=== PATIENT | female | born 1975 | race Caucasian/White ===

== ENCOUNTER 2016-09-18 10:48 | Day surgery (SDC) | payer BC ==
[2016-09-10 14:21] VITALS: BMI 24.0
--- NOTE | 2016-09-10 14:44 | PAT Medication Instructions ---
Service Date September 10, 2016. Current Home Medication List Acetaminophen (Tylenol), 1,000 MG PO PRN Fexofenadine-Pseudoephedrine (Aurea-D 24 Hour Allergy), 1 TAB PO QAM Fluticasone Prop/Salmeterol (Advair Diskus 100/50 60 Dose), 1 PUFF INH BID Fluticasone Propionate (Nasal) (Flonase Allergy Relief), 2 SPRAYS GLENN QAM Ibuprofen (Advil), 400 MG PO PRN Multivitamin (Multivitamin), 2 TABS PO QAM [Progest Cream], 1 APPLN PV UD Medication Instructions For Your Scheduled Surgery - Hold the following medications 24 hours prior to surgery: [Progest Cream], 1 APPLN PV UD - Hold the following medications the morning of surgery: Multivitamin (Multivitamin), 2 TABS PO QAM Ibuprofen (Advil), 400 MG PO PRN (otherwise okay to continue per surgeon) Fexofenadine-Pseudoephedrine (Aurea-D 24 Hour Allergy), 1 TAB PO QAM - Take the following medications the morning of surgery with a sip of water OTHERWISE NOTHING TO EAT OR DRINK AFTER MIDNIGHT: Fluticasone Propionate (Nasal) (Flonase Allergy Relief), 2 SPRAYS GLENN QAM Fluticasone Prop/Salmeterol (Advair Diskus 100/50 60 Dose), 1 PUFF INH BID Albuterol Rescue Inhaler (use if needed; BRING TO HOSPITAL) Acetaminophen (Tylenol), 1,000 MG PO PRN (may use if needed up to 4 hours prior to surgery) - Take the following medications as scheduled the night before surgery: Fluticasone Prop/Salmeterol (Advair Diskus 100/50 60 Dose), 1 PUFF INH BID Acetaminophen (Tylenol), 1,000 MG PO PRN If you have any questions please call us at [phone] or [phone] or [phone]
[2016-09-10 15:01] LABS: BASO % 0.3 %; BASO ABS # 0.02 K/uL (0-0.2); COMPLETE YES; EOS % 0.9 %; HEMATOCRIT 38.6 % (37-47); IG% 0.2 %; LYMPH % 29.9 %; LYMPH ABS # 1.93 K/uL (1.2-3.4); MEAN CELL VOLUME 90.4 fL (80-100); MEAN CORPUSCULAR HEMOGLOBIN 30.9 pg (25-34); MEAN CORPUSCULAR HGB CONC 34.2 g/dl (32-36); MEAN PLATELET VOLUME 9.8 fL (7.4-10.4); MONO % 5.9 %; NEUT % 62.8 %; PLATELET COUNT 201 K/uL (130-400); RED BLOOD COUNT 4.27 M/uL (4.2-5.4); WHITE BLOOD COUNT 6.46 K/uL (4.8-10.8)
[~2016-09-18] VITALS: Ht 160 cm; Wt 63.7 kg
[~2016-09-18 10:48] MED LIST: ACET-1256 PO; ADVIN10/60 INH; ATROPINE SULFATE 0.1 MG/ML 5ML SYR IV PRN; DEXAMETHASONE SOD INJ 4 MG/ML VIAL ONE; EpHEDrine SULFATE INJ 50 MG/ML AMP IV PRN; FENTANYL CITRATE INJ 50 MCG/1 ML 2 ML VIAL ONE; FEXO1TAB58 PO; FLUT0.15 NAE; GLYCOPYRROLATE INJ 0.2 MG/ML VIAL ONE; HYDROmorphone INJ 1 MG/ML SYR IV PRN; IBUP-1050 PO; LABETALOL HCL IV 5 MG/ML 20ML IV PRN; LACTATED RINGER'S 1000ML 1,000 ML IV SCH; LIDOCAINE HCL 2% 2 ML VIAL (20MG/ML) ONE; MEPERIDINE HCL 25 MG/ML CARP IV PRN; MIDAZOLAM HCL 1 MG/ML 2ML VIAL ONE; MULT-506 PO; NEOSTIGMINE METHYLSULFATE 5 MG/5 ML SYR ONE; ONDANSETRON INJ 2 MG/ML 2 ML VIAL IV PRN; ONDANSETRON INJ 2 MG/ML 2 ML VIAL ONE; PROGEST PV; PROPOFOL IV EMULSION 10 MG/ML 20 ML VIAL IV ONE; ROCURONIUM BROMIDE 10 MG/ML 5 ML VIAL ONE
[2016-09-18 11:19] VITALS: BP 111/63; PULSE 60; TEMP 37.2; O2SAT 100; Ht 160 cm; Wt 63.7 kg
--- NOTE | 2016-09-18 11:58 | History & Physical Bridge Note ---
H&P Re-Evaluation Bridge Note: I have examined the patient, reviewed the History & Physical and in the interval since the performance of the History & Physical I have noted the following changes of clinical significance: No changes noted
[2016-09-18] MEDS: CEFAZOLIN 2000 MG/60 ML D5W 50 ML IV SCH ×2 (12:17→12:20)
[2016-09-18] MEDS ORDERED: BUPIVACAINE 0.5 % 5 MG/1 ML MPF 30ML VIAL ONE (12:27)
[2016-09-18] MEDS ORDERED: GLYCOPYRROLATE INJ 0.2 MG/ML VIAL ONE (13:12)
[2016-09-18] MEDS ORDERED: SODIUM CHLORIDE 0.9% 1000ML 1,000 ML IV SCH (13:33)
--- NOTE | 2016-09-18 13:39 | [facility] Post Operative Brief Note ---
Immediate Operative Summary Operative Date September 18, 2016. Pre-Operative Diagnosis Complex left ovarian cyst, history of endometriosis, chronic pelvic pain Post-Operative Diagnosis same Procedure(s) Performed Laparoscopy, Left Salpingo-oophorectomy Surgeon Dr. Espana Nutter Up Surgeon(s) Dr. Rome Estimated Blood Loss 5ml Findings Upon laparoscopic exam. Uterus was at midline, freely mobile with normal contour. There was a thin film over the serosa of the uterus indicating endometriosis. The left fallopian tube and ovary were adhered to each other. There was a complex cystic structure noted on the left ovary. The entire left adnexa was successfully removed with the LigaSure, placed within an EndoCatch bag and removed from the abdomen. Hemostasis noted. There was scar tissue and deep endometrial implants along the left uterosacral ligament and posterior cul- de-sac. The right ovary and tube were grossly normal. No other intraabdominal or pelvic pathology noted. Patient tolerated the procedure well and was sent to recovery with stable vital signs. Fluids (cc crystalloids) 1000 Specimens A. left tube and ovary (permanent) Drains none Anesthesia General Complication(s) None Disposition Recovery Room / PACU
[2016-09-18] MEDS ORDERED: MTR600X PO (13:40)
[2016-09-18] MEDS ORDERED: OXYC-57 PO (13:40)
--- NOTE | 2016-09-18 13:42 | Discharge Instructions ---
Discharge Instructions Date of Service September 18, 2016. Visit Reason for Visit: Pelvic Pain, Left Complex Ovarian Cyst, Hx Endomet Discharge Discharge Diagnosis / Problem: Laparoscopic removal of left tube and ovary, Endometriosis Discharge Goals Goal(s): Decrease discomfort Activity Recommendations Activity Limitations: per Instructions/Follow-up section Anesthesia . Post Anesthesia Instructions: If you have had General Anesthesia or IV Sedation: * Do not drive today. * Resume driving when surgeon permits. * Do not make important decisions or sign legal documents today. * Call surgeon for: 1. Temperature elevations greater than 101 degrees F. 2. Uncontrollable pain. 3. Excessive bleeding. 4. Persistent nausea and vomiting. 5. Medication intolerance (nausea, vomiting or rash). * For nausea and vomiting use only clear liquids such as: tea, soda, bouillon until nausea subsides, then gradually increase diet as tolerated. * If you have any concerns or questions, call your surgeon's office. If physician is unavailable and it is an emergency, call 911 or go to the nearest emergency room. . Instructions / Follow-Up Instructions / Follow-Up SPECIAL CARE INSTRUCTIONS: * Check temperature twice daily for one week. Report any elevation over 100.4 degrees Fahrenheit (38.0 degrees Celsius). * Call office in the next few days for return appointment. * You may experience some vaginal spotting and/or bleeding, this is normal for one or two weeks and should not alarm you. * Post-operative discomfort may consist of a sore throat, a "bloated" feeling and pain in the shoulders. These are normal symptoms which usually only last for two or three days. FOLLOW UP VISIT: Keep any scheduled doctor appointments. Diet Recommendations Recommended Home Diet: no limitations, resume previous diet Procedures Procedures Performed: Laparoscopy, Left Salpingo-oophorectomy Pending Studies Studies pending at discharge: no Medical Emergencies . Who to Call and When: Medical Emergencies: If at any time you feel your situation is an emergency, please call 911 immediately. . Non-Emergent Contact Non-Emergency issues call your: Primary Care Provider, Transfer Station Attendant . . "Provider Documentation" section prepared by Osvaldo Espana. . [place] Drug Monitoring Program Search Results: patient reviewed within database, no issues identified
[2016-09-18] MEDS ORDERED: IBUPROFEN 600 MG TAB PO PRN (13:45)
[2016-09-18] MEDS ORDERED: KETOROLAC TROMETHAMINE 30 MG/ML VIAL IV. PRN (13:45)
[2016-09-18] MEDS ORDERED: OXYCODONE/ACETAMINOPHEN 5-325 TAB PO PRN ×2 (13:45)
[2016-09-18] MEDS ORDERED: ONDANSETRON INJ 2 MG/ML 2 ML VIAL IV PRN (13:45)
[2016-09-18] MEDS: FENTANYL CITRATE INJ 50 MCG/1 ML 2 ML VIAL IV PRN ×2 (13:51→13:56)
--- NOTE | 2016-09-18 14:16 | Anesthesiology Progress Note ---
Anesthesia Post Op Note Date & Time September 18, 2016 at 14:16 Vital Signs Pain Intensity: 3 Vital Signs Past 12 Hours Date Time Temp Pulse Resp B/P Pulse Ox O2 Delivery O2 Flow Rate FiO2 09/18/16 14:05 72 19 103/55 100 Mask 10 09/18/16 13:55 68 16 103/61 100 Mask 10 09/18/16 13:45 36.4 95 16 110/61 100 Mask 10 09/18/16 11:19 37.2 60 18 111/63 100 Room Air Notes Mental Status: alert / awake / arousable, participated in evaluation Pt Amnestic to Procedure: Yes Nausea / Vomiting: adequately controlled Pain: adequately controlled Airway Patency, RR, SpO2: stable & adequate BP & HR: stable & adequate Hydration State: stable & adequate Anesthetic Complications: no major complications apparent
[2016-09-18 14:30] VITALS: BP 101/62; PULSE 76; TEMP 36.7; O2SAT 100
[2016-09-18 15:00] VITALS: BP 107/65; PULSE 64; TEMP 36.7; O2SAT 100
[2016-09-18] MEDS ORDERED: OXYCODONE/ACETAMINOPHEN 5-325 TAB ONE (15:02)
[2016-09-18 15:25] VITALS: BP 123/69; PULSE 67; TEMP 36.5; O2SAT 100
--- NOTE | 2016-09-18 16:12 | OPERATIVE REPORT ---
DATE OF OPERATION: 09/18/2016 PREOPERATIVE DIAGNOSES: 1. Complex left ovarian cyst. 2. Chronic pelvic pain. 3. History of endometriosis. POSTOPERATIVE DIAGNOSES: Same. OPERATIVE PROCEDURE: Laparoscopy with left salpingo-oophorectomy. SURGEON: Dr. Osvaldo Espana. LINOLEUM INSTALLER: Dr. Camacho. ANESTHESIA: General. ESTIMATED BLOOD LOSS: 5 mL. IV FLUIDS: 1000 mL crystalloids. URINE OUTPUT: 100 mL clear yellow urine. SPECIMENS: Left ovary and tube to pathology. DRAINS: None. COMPLICATIONS: None. DISPOSITION: Recovery room. OPERATIVE FINDINGS: Upon laparoscopic exam, uterus was at midline and freely mobile with normal contour. No subserosal fibroids noted. There was a thin film over the serosa of the uterus indicating endometriosis. The left fallopian tube and ovary were tightly adhered to each other. There was a complex cystic structure noted on the left ovary and tube. The entire left adnexa was successfully removed with the LigaSure, placed within an EndoCatch bag and removed from the abdomen. Excellent hemostasis was noted at the removal site. There was also scar tissue and deep endometrial implants along the left uterosacral ligament and posterior cul-de-sac. The right ovary and fallopian tube were grossly normal. No other intra-abdominal or pelvic pathology noted. The patient tolerated the procedure well and was sent to recovery with stable vital signs. OPERATIVE PROCEDURE IN DETAIL: The patient was taken to the operating room, where general anesthesia was administered. Once anesthesia was found to be adequate, the patient was placed in dorsal lithotomy position and was prepped and draped in a manner appropriate for the procedure. The bladder was drained of clear yellow urine. A weighted speculum was then placed into the vagina and the anterior lip of the cervix was grasped with a single tooth tenaculum. A Everypoint uterine manipulator was then placed within the uterus in an anteverted fashion. The patient was then ready for the laparoscopic portion of the procedure. Attention was directed towards the abdomen. 0.5% Marcaine was injected below the umbilicus and an 11-mm skin incision was made below the umbilicus in a vertical fashion. A Veress needle was then placed within the abdomen and normal saline was injected with no fecal content aspirated. Pneumoperitoneum was then created. The Veress needle was then removed and an 11-mm trocar was then placed within the abdomen under direct laparoscopic visualization. The patient was then placed in steep Trendelenburg position. The bowel was displaced superiorly away from the pelvis. A second 11-mm skin incision was made 2 fingerbreadths above the pubic symphysis in a horizontal fashion and 11-mm trocar was then placed within the abdomen under direct laparoscopic visualization. A thorough examination of the abdomen and pelvis was then performed. Attention was directed towards the left adnexa, where there was a complex cystic structure along the left ovary and tube. The left ovary was tightly adhered to the left fallopian tube. The entire complex was removed with the LigaSure. The left infundibulopelvic ligament was cauterized and transected and continued inferiorly through the rest of the left ovary and tube, removing the left ovary and tube successfully. Excellent hemostasis was noted. The specimens were then placed within an EndoCatch bag and removed from the suprapubic trocar. Once the specimen was removed, the entire abdomen and pelvis were then irrigated with warm saline solution. Any residual bleeding was cauterized with the LigaSure. Again, excellent hemostasis was noted at the removal site of the left ovary and tube. At this point, the procedure was found to be complete and as much CO2 gas was allowed to percolate through the open cannulas. The cannulas were then removed. The fascia of both skin incisions were closed with 0 Vicryl suture in a [id number] interrupted fashion. Both skin incisions were closed with 4-0 Monocryl in a subcuticular fashion. Excellent hemostasis was noted. The Hulka uterine manipulator was then removed from the vagina. Again, hemostasis was noted. All sponge and instrument counts were found to be correct x2. The patient tolerated the surgery well and was sent to recovery with stable vital signs. I attest to the content of the Intraoperative Record and any orders documented therein. Any exceptio ns are noted below.
== END 2016-09-18 15:35 | disposition home or self-care (01) ==
LOC: C.ACU 10:48
PROVIDERS: ATTEND Obstetrics & Gynecology
DX: N83.202 Unspecified ovarian cyst, left side (principal); N80.2 Endometriosis of fallopian tube; N80.1 Endometriosis of ovary; N83.8 Other noninflammatory disorders of ovary, fallopian tube and broad ligament; G89.29 Other chronic pain; Z87.42 Personal history of other diseases of the female genital tract; Z90.89 Acquired absence of other organs; J45.909 Unspecified asthma, uncomplicated; Z98.890 Other specified postprocedural states; Z87.891 Personal history of nicotine dependence; Z98.51 Tubal ligation status; Z68.24 Body mass index [BMI] 24.0-24.9, adult; Z90.49 Acquired absence of other specified parts of digestive tract; Z80.1 Family history of malignant neoplasm of trachea, bronchus and lung; Z80.52 Family history of malignant neoplasm of bladder; Z83.3 Family history of diabetes mellitus; Z82.49 Family history of ischemic heart disease and other diseases of the circulatory system; Z82.3 Family history of stroke; Z82.5 Family history of asthma and other chronic lower respiratory diseases

== ENCOUNTER 2017-05-15 17:34 | Emergency (ER) | payer BC ==
[~2017-05-15] VITALS: Ht 160 cm; Wt 63.7 kg
[~2017-05-15 17:34] MED LIST changes: -ATROPINE SULFATE 0.1 MG/ML 5ML SYR IV PRN; -DEXAMETHASONE SOD INJ 4 MG/ML VIAL ONE; -EpHEDrine SULFATE INJ 50 MG/ML AMP IV PRN; -FENTANYL CITRATE INJ 50 MCG/1 ML 2 ML VIAL ONE; -GLYCOPYRROLATE INJ 0.2 MG/ML VIAL ONE; -HYDROmorphone INJ 1 MG/ML SYR IV PRN; -IBUP-1050 PO; -LABETALOL HCL IV 5 MG/ML 20ML IV PRN; -LACTATED RINGER'S 1000ML 1,000 ML IV SCH; -LIDOCAINE HCL 2% 2 ML VIAL (20MG/ML) ONE; -MEPERIDINE HCL 25 MG/ML CARP IV PRN; -MIDAZOLAM HCL 1 MG/ML 2ML VIAL ONE; +MTR600X PO; -NEOSTIGMINE METHYLSULFATE 5 MG/5 ML SYR ONE; -ONDANSETRON INJ 2 MG/ML 2 ML VIAL IV PRN; -ONDANSETRON INJ 2 MG/ML 2 ML VIAL ONE; +OXYC-57 PO; -PROPOFOL IV EMULSION 10 MG/ML 20 ML VIAL IV ONE; -ROCURONIUM BROMIDE 10 MG/ML 5 ML VIAL ONE
[2017-05-15 17:37] VITALS: TEMP 36.5; Ht 160 cm; Wt 63.7 kg
[2017-05-15] MEDS ORDERED: ACETAMINOPHEN 500 MG TAB PO STA (18:00)
[2017-05-15] MEDS ORDERED: MoRPHine SULFATE 4 MG/ML 1 ML CARP\\VIAL IV STA (18:00)
[2017-05-15] MEDS ORDERED: KETOROLAC TROMETHAMINE 30 MG/ML VIAL IV STA (18:00)
--- NOTE | 2017-05-15 18:17 | DIAGNOSTIC IMAGING REPORT ---
CHEST ONE VIEW PORTABLE CLINICAL HISTORY: Atypical chest pain COMPARISON STUDY: No previous studies for comparison. FINDINGS: The cardiac and mediastinal contours are normal. There is no evidence of focal pulmonary consolidation. There is no evidence of failure. No pleural effusions are visualized.[ No pneumothorax is visualized. An electronic device projects over the left chest, possibly representing an event recorder. IMPRESSION: No active disease in the chest. Electronically signed by: José Antonio Martines M.D. 05/15/2017 6:15 PM Dictated Date/Time: 05/15/2017 6:15 PM
[2017-05-15 18:21] VITALS: O2SAT 100
[2017-05-15 18:23] LABS: BASO % 0.4 %; BASO ABS # 0.03 K/uL (0-0.2); EOS % 0.7 %; EOS ABS # 0.05 K/uL (0-0.5); HEMOGLOBIN 13.6 g/dL (12.0-16.0); IG# 0.01 K/uL (0.00-0.02); LYMPH % 31.5 %; LYMPH ABS # 2.29 K/uL (1.2-3.4); MEAN CELL VOLUME 89.8 fL (80-100); MEAN CORPUSCULAR HEMOGLOBIN 32.2 pg (25-34); MEAN CORPUSCULAR HGB CONC 35.8 g/dl (32-36); MEAN PLATELET VOLUME 9.8 fL (7.4-10.4); MONO % 4.7 %; MONO ABS # 0.34 K/uL (0.11-0.59); NEUT % 62.6 %; NEUT ABS # 4.54 K/uL (1.4-6.5); PLATELET COUNT 231 K/uL (130-400); RED CELL DISTRIBUTION WIDTH CV 12.3 % (11.5-14.5); WHITE BLOOD COUNT 7.26 K/uL (4.8-10.8)
--- NOTE | 2017-05-15 18:24 | EMERGENCY ROOM VISIT NOTE ---
History Report prepared by Dudley: Yoon Fatima Under the Supervision of: Dr. Anam Daugherty M.D. 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 Positive cough, nausea, diaphoresis, lightheadedness, back pain, and shortness of breath. Negative vomiting, abdominal pain or recent travels. She notes the chest pain began when she was leaning into a laundry basket. She notes the chest pain is radiating to her back. She currently rates her pain a 7/10 in severity. Per , the patient appeared pale and her pupils were dilated at dinner time today. She notes that she was having palpitations in late March and had a UTI at that time. She was seen by her vp software who placed a compress machine operator on her. Her vp software advised her to come to the ED if her symptoms persisted. She notes that she has been having chest pains intermittently, though she had not had them for two weeks until today. She notes that she is very active. She notes her LNMP was last week. She denies any history of tobacco use. She denies any flu-like symptoms. She denies any history of DVT, PE , [place]. She denies any family history of [place]. 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 She denies any recent travels. Review of Systems See HPI for pertinent positives and negatives. A total of ten systems were reviewed and were otherwise negative. Past Medical & Surgical Medical Problems: (1) Cervical rib resection (2015) (2) Umbilical hernia Surgical Problems: (1) H/O section (2) S/P cholecystectomy Family History Cancer Diabetes mellitus FHx: gallbladder disease Heart disease Hypertension Lung disease Social History Smoking Status: Former Smoker Smokeless Tobacco Use: No Alcohol Use: occasionally Drug Use: none Marital Status: Housing Status: lives with family Occupation Status: employed Current/Historical Medications Scheduled Cyanocobalamin (Vitamin B-12), 500 MCG PO DAILY Fexofenadine-Pseudoephedrine (Aurea-D 24 Hour Allergy), 1 TAB PO QAM Fluticasone Prop/Salmeterol (Advair Diskus 100/50 60 Dose), 1 PUFF INH BID Fluticasone Propionate (Nasal) (Flonase Allergy Relief), 2 SPRAYS GLENN QAM Multivitamin (Multivitamin), 2 TABS PO QAM [Progest Cream], 1 APPLN PV UD Allergies Coded Allergies: POLLEN (Verified Allergy, Unknown, POLLEN, GRASS, TREES-AGGRAVATES ASTHMA- STUFFY NOSE,, 05/15/17) Metoclopramide (Verified Adverse Reaction, Unknown, ANXIETY, 05/15/17) Physical Exam Vital Signs Date Time Temp Pulse Resp B/P (MAP) Pulse Ox O2 Delivery O2 Flow Rate FiO2 05/15/17 19:52 59 18 102/68 100 05/15/17 19:51 59 18 102/68 100 Room Air 05/15/17 18:50 58 20 102/68 99 Room Air 05/15/17 18:21 65 18 111/66 100 Room Air 05/15/17 18:21 100 Room Air 05/15/17 18:19 100 Room Air 05/15/17 18:11 71 05/15/17 17:37 36.5 73 20 132/79 100 Room Air Physical Exam GENERAL: Awake, alert, well-appearing, NAD HENT: Normocephalic, atraumatic. EYES: Normal conjunctiva. Sclera non-icteric. NECK: Supple. No nuchal rigidity. FROM. Scarring of the right inferior lateral aspect of the neck. RESPIRATORY: CTAB, no rhonchi, wheezing, crackles CARDIAC: RRR, no MRG ABDOMEN: Soft, NTND, BS+ MSK: No chest wall TTP, no LE edema. device on left chest. No calf pain. No leg swelling. NEURO: GCS 15, CN 2-12 intact, moves all 4s on command SKIN: No rash or jaundice noted. Medical Decision & Procedures ER Provider Diagnostic Interpretation: Radiology results as stated below per my review and radiologist interpretation: CHEST ONE VIEW PORTABLE CLINICAL HISTORY: Atypical chest pain COMPARISON STUDY: No previous studies for comparison. FINDINGS: The cardiac and mediastinal contours are normal. There is no evidence of focal pulmonary consolidation. There is no evidence of failure. No pleural effusions are visualized.[ No pneumothorax is visualized. An electronic device projects over the left chest, possibly representing an event recorder. IMPRESSION: No active disease in the chest. Electronically signed by: José Antonio Martines M.D. 05/15/2017 6:15 PM Dictated Date/Time: 05/15/2017 6:15 PM Laboratory Results 05/15/17 18:02 Red Blood Count 4.23, Mean Corpuscular Volume 89.8, Mean Corpuscular Hemoglobin 32.2, Mean Corpuscular Hemoglobin Concent 35.8, Mean Platelet Volume 9.8, Neutrophils (%) (Auto) 62.6, Lymphocytes (%) (Auto) 31.5, Monocytes (%) (Auto) 4.7, Eosinophils (%) (Auto) 0.7, Basophils (%) (Auto) 0.4, Neutrophils # (Auto) 4.54, Lymphocytes # (Auto) 2.29, Monocytes # (Auto) 0.34, Eosinophils # (Auto) 0.05, Basophils # (Auto) 0.03 05/15/17 18:02 Test 05/15/17 18:02 White Blood Count 7.26 K/uL (4.8-10.8) Red Blood Count 4.23 M/uL (4.2-5.4) Hemoglobin 13.6 g/dL (12.0-16.0) Hematocrit 38.0 % (37-47) Mean Corpuscular Volume 89.8 fL (80-100) Mean Corpuscular Hemoglobin 32.2 pg (25-34) Mean Corpuscular Hemoglobin Concent 35.8 g/dl (32-36) Platelet Count 231 K/uL (130-400) Mean Platelet Volume 9.8 fL (7.4-10.4) Neutrophils (%) (Auto) 62.6 % Lymphocytes (%) (Auto) 31.5 % Monocytes (%) (Auto) 4.7 % Eosinophils (%) (Auto) 0.7 % Basophils (%) (Auto) 0.4 % Neutrophils # (Auto) 4.54 K/uL (1.4-6.5) Lymphocytes # (Auto) 2.29 K/uL (1.2-3.4) Monocytes # (Auto) 0.34 K/uL (0.11-0.59) Eosinophils # (Auto) 0.05 K/uL (0-0.5) Basophils # (Auto) 0.03 K/uL (0-0.2) RDW Standard Deviation 40.0 fL (36.4-46.3) RDW Coefficient of Variation 12.3 % (11.5-14.5) Immature Granulocyte % (Auto) 0.1 % Immature Granulocyte # (Auto) 0.01 K/uL (0.00-0.02) Prothrombin Time 10.7 SECONDS (9.0-12.0) Prothromb Time International Ratio 1.0 (0.9-1.1) Activated Partial Thromboplast Time 26.6 SECONDS (21.0-31.0) Partial Thromboplastin Ratio 1.0 D-Dimer < 190 ug/L FEU (0-500) Anion Gap 9.0 mmol/L (3-11) Est Creatinine Clear Calc Drug Dose 73.8 ml/min Estimated GFR () 91.5 Estimated GFR (Non- 78.9 BUN/Creatinine Ratio 16.5 (10-20) Calcium Level 9.3 mg/dl (8.5-10.1) Total Bilirubin 0.8 mg/dl (0.2-1) Direct Bilirubin 0.1 mg/dl (0-0.2) Aspartate Amino Transf (AST/SGOT) 15 U/L (15-37) Alanine Aminotransferase (ALT/SGPT) 19 U/L (12-78) Alkaline Phosphatase 56 U/L (45-117) Troponin I < 0.015 ng/ml (0-0.045) Pro-B-Type Natriuretic Peptide 29 pg/ml (0-450) Total Protein 7.4 gm/dl (6.4-8.2) Albumin 4.2 gm/dl (3.4-5.0) Lipase 186 U/L (73-393) Laboratory results reviewed by me Medications Administered Medications (Trade) Dose Ordered Sig/Wu Route Start Time Stop Time Status Last Admin Dose Admin Acetaminophen (Tylenol Tab) 1,000 mg NOW STAT PO 05/15/17 18:00 05/15/17 18:02 DC 05/15/17 18:25 1,000 MG Ketorolac Tromethamine (Toradol Inj) 30 mg NOW STAT IV 05/15/17 18:00 05/15/17 18:02 DC 05/15/17 18:25 30 MG Morphine Sulfate (MoRPHine SULFATE INJ) 4 mg NOW STAT IV 05/15/17 18:00 05/15/17 18:02 DC 05/15/17 18:26 4 MG ECG Indication: chest pain Rate (beats per minute): 73 Rhythm: normal sinus Findings: nonspecific-ST abn, other (Normal axis. Normal intervals. ) ED Course 1756: The patient was evaluated in room C8. A complete history and physical exam was performed. 1924: I reassessed the patient at this time. She is feeling better and resting comfortably. I discussed the results and treatment plan with the patient. I answered all pertaining questions that she had. She expressed understanding and verbalized agreement. The patient will be discharged home. 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 Prior records/ancillary studies reviewed. The patient's history was concerning for chest pain. Differential diagnosis: Etiologies such as cardiac ischemia, aortic dissection, pulmonary embolism, pneumonia, pneumothorax, musculoskeletal, infections, pericarditis, myocarditis , esophageal rupture, gastrointestinal, as well as others were entertained. Patient was seen and evaluated the bedside. Patient did have a history of chronic chest pains and has been seen as an outpatient. Patient currently does have a recording device on the anterior chest. Patient does have follow-up with cardiology and is scheduled for an outpatient echocardiogram. Patient does not sound like typical ACS with an EKG and troponin were obtained. Patient did have additional blood work as well as chest x-ray. Given patient's persistent chest pain and d-dimer was also obtained given that I find she is likely low risk. Patient's d-dimer was normal. Patient troponin negative. Patient's EKG did not show any ischemic changes. Patient's white blood cell count was normal limits. Patient's H&H is normal. Patient's chest x-ray is clear. No evidence of consolidation, pneumothorax, pleural effusion, or interstitial edema. I did discuss the findings with the patient stated this is less likely to be ACS or PE. Patient was given return precautions as well as warning signs for which to return. Patient was told to keep her follow-up appointments. Patient did state that her chest pain had improved after being given medications. Patient was told it would not be unreasonable to try things like Motrin or ibuprofen and Tylenol. Patient was agreeable with plan of care. Patient did have a heart score less than 4 less likely ACS and may follow up as an outpatient. Given the patient's normal d-dimer unlikely to be PE. May be somewhat muscular skeletal of the patient's pain did improve with pain control. Patient was given strict follow-up, discharge, and return precautions. All questions were answered. Patient was deemed suitable for outpatient follow-up at this time. Patient agreed with the plan of care and was safely discharged home. Medication Reconcilliation Current Medication List: was personally reviewed by me Blood Pressure Screening Patient's blood pressure: Normal blood pressure Impression Primary Impression: Chest pain Scribe Attestation The scribe's documentation has been prepared under my direction and personally reviewed by me in its entirety. I confirm that the note above accurately reflects all work, treatment, procedures, and medical decision making performed by me. Departure Information Dispostion Home / Self-Care Referrals No Doctor, Assigned (PCP) Forms Call Back Authorization, HOME CARE DOCUMENTATION FORM, IMPORTANT VISIT INFORMATION Patient Instructions Chest Pain - [facility], [facility] Additional Instructions Please return to the emergency department if you have worsening or recurrent symptoms not amenable to at-home treatment. Please call for a follow-up appointment with her primary care physician. Please take your medications as prescribed. If you have other concerns and/or complaints please feel free to also call your primary care physician's office or return the ED for further evaluation, management, and treatment. You received narcotic or benzodiazepene medication while in the emergency room today. This is an addictive medication that may cause drowziness as well as constipation. Do not drive, operate heavy machinery, or drink alcohol under the influence of this medication. You may take 600 mg Ibuprofen every 6 hours as needed for pain with food for no more than 2 consecutive days. You may take tylenol 1000 mg every 6 hours as needed for pain. You may take motrin and tylenol separately or at the same time. Take your medications as prescribed. You have been examined and treated today on an emergency basis only. This is not a substitute for, or an effort to provide, complete comprehensive medical care. It is impossible to recognize and treat all injuries or illnesses in a single emergency department visit. It is therefore important that you follow up closely with [facility], your PCP, and/or your specialist(s). Call as soon as possible for an appointment. Thank you for your time and consideration. I look forward to speaking with you again soon. Please don't hesitate to call us if you have any questions. Problem Qualifiers Primary Impression: Chest pain Chest pain type: unspecified Qualified Codes: R07.9 - Chest pain, unspecified
[2017-05-15] MEDS ORDERED: CYAN500T PO (18:30)
[2017-05-15 18:44] LABS: PTT PATIENT 26.6 SECONDS (21.0-31.0)
[2017-05-15 18:46] LABS: ALBUMIN 4.2 gm/dl (3.4-5.0); ALT/SGPT 19 U/L (12-78); BLOOD UREA NITROGEN 15 mg/dl (7-18); CALCIUM 9.3 mg/dl (8.5-10.1); CARBON DIOXIDE 25 mmol/L (21-32); CREATININE 0.91 mg/dl (0.60-1.20); GLUCOSE 86 mg/dl (70-99); LIPASE 186 U/L (73-393); POTASSIUM 3.6 mmol/L (3.5-5.1); SODIUM 137 mmol/L (136-145)
[2017-05-15 18:52] LABS: ALKALINE PHOSPHATASE 56 U/L (45-117); AST/SGOT 15 U/L (15-37); TOTAL PROTEIN 7.4 gm/dl (6.4-8.2)
[2017-05-15 19:52] VITALS: BP 102/68; PULSE 59; O2SAT 100
== END 2017-05-15 19:53 | disposition home or self-care (01) ==
LOC: C.EDB 17:34 → C.EDC 19:53
DX: R07.9 Chest pain, unspecified (principal); Z90.49 Acquired absence of other specified parts of digestive tract; Z98.890 Other specified postprocedural states; Z87.891 Personal history of nicotine dependence; Z79.899 Other long term (current) drug therapy; Z91.09 Other allergy status, other than to drugs and biological substances; Z80.9 Family history of malignant neoplasm, unspecified; Z83.3 Family history of diabetes mellitus; Z83.79 Family history of other diseases of the digestive system; Z82.49 Family history of ischemic heart disease and other diseases of the circulatory system